=== PATIENT | female | born 1965 | race Hispanic/Latino ===

== ENCOUNTER 2017-01-22 18:27 | Emergency (ER) | payer OTHER ==
[2017-01-22 18:34] VITALS: BP 150/78; PULSE 73; RESP 18; TEMP 98.1; O2SAT 98
--- NOTE | 2017-01-22 19:31 | ED PDOC ---
Lower Extremity Pain/Injury Time Seen by Provider: 01/22/17 18:47 Chief Complaint (Nursing): Lower Extremity Problem/Injury Chief Complaint (Provider): Lower Extremity Problem/Injury History Per: Patient Onset/Duration Of Symptoms: Other (x today) Current Symptoms Are (Timing): Still Present Additional Complaint(s): Ema is a 51 year old female who presents to the Emergency Department complaining of right twisted ankle that occurred today between 15:00 and 16:00. Patient states she fell down a couple of stairs. Denies head injury, wrist injury, diabetes, hypertension and asthma. Admits to taking Advil at 17:00 today. PMD: Mayra Enrique Past Medical History Reviewed: Historical Data, Nursing Documentation, Vital Signs Vital Signs: Last Vital Signs Temp 98.1 F 01/22/17 18:30 Pulse 73 01/22/17 18:30 Resp 18 01/22/17 18:30 BP 150/78 01/22/17 18:30 Pulse Ox 98 01/22/17 18:30 - Medical History PMH: No Chronic Diseases - Surgical History Surgical History: No Surg Hx - Family History Family History: States: No Known Family Hx - Home Medications Home Medications: Ambulatory Orders Medication Instructions Recorded Ciprofloxacin [Cipro] 250 mg PO BID #14 tab 02/13/16 Triamcinolone Acetonide 0.1% 1 appl TP BID #1 tube 02/15/16 [Triamcinolone 0.1%] Ibuprofen [Motrin] 600 mg PO Q8 PRN #21 tab 01/22/17 - Allergies Allergies/Adverse Reactions: Allergies Allergy/AdvReac Type Severity Reaction Status Date / Time No Known Allergies Allergy Verified 02/13/16 13:31 Review of Systems ROS Statement: Except As Marked, All Systems Reviewed And Found Negative Musculoskeletal: Positive for: Other (Right Ankle Pain) Physical Exam - Reviewed Nursing Documentation Reviewed: Yes Vital Signs Reviewed: Yes - Physical Exam Appears: Positive for: Well, Non-toxic Head Exam: Positive for: ATRAUMATIC, NORMAL INSPECTION, NORMOCEPHALIC Skin: Positive for: Normal Color Eye Exam: Positive for: Normal appearance Neck: Positive for: Normal Respiratory: Negative for: Respiratory Distress Extremity: Positive for: Tenderness (Right lateral ankle tendenress), Other Neurologic/Psych: Positive for: Alert, Oriented (x 3) - ECG O2 Sat by Pulse Oximetry: 98 (RA) Pulse Ox Interpretation: Normal Medical Decision Making Medical Decision Making: Time: 18:47 Plan: - Right Ankle X-Ray - Right Foot X-Ray Time: 19:59 Right Foot X-Ray FINDINGS: Bones/joints: Unremarkable. No acute fracture. No dislocation. Soft tissues: Unremarkable. No radiopaque foreign body. IMPRESSION: No acute findings Time: 19:59 Right Ankle X-Ray FINDINGS: Bones/joints: Unremarkable. No acute fracture. No dislocation. Soft tissues: Unremarkable. IMPRESSION: No acute findings. Time: 20:06 Upon provider evaluation patient is medically stable, and requires no further treatment in the ED at this time. Patient will be discharged with Rx for Motrin. Counseling was provided and all questions were answered regarding diagnosis and need for follow up with PCP. There is agreement to discharge plan. Return if symptoms persist or worsen. Scribe Attestation: Documented by Omega Montgomery, acting as a scribe for Scott Vela PA-C Provider Scribe Attestation: All medical record entries made by the Scribe were at my direction and personally dictated by me. I have reviewed the chart and agree that the record accurately reflects my personal performance of the history, physical exam, medical decision making, and the department course for this patient. I have also personally directed, reviewed, and agree with the discharge instructions and disposition. Disposition - Clinical Impression Clinical Impression: Foot sprain, Ankle sprain - Patient ED Disposition Is Patient to be Admitted: No - Disposition Referrals: Podiatry Clinic [Outside] Disposition: Routine/Home Disposition Time: 20:06 Condition: FAIR Prescriptions: Ibuprofen [Motrin] 600 mg PO Q8 PRN #21 tab PRN Reason: Pain, Moderate (4-7) Instructions: Ankle Sprain (ED) Forms: [employer] ([employer]), [employer] ED School/Work Excuse
--- NOTE | 2017-01-23 11:39 | RAD ---
PROCEDURE: Right Ankle Radiographs. HISTORY: ankle injury COMPARISON: None FINDINGS: BONES: Normal. No fracture. JOINTS: Normal. No osteoarthritis. Ankle mortise maintained. Talar dome intact SOFT TISSUES: Normal. OTHER FINDINGS: None. IMPRESSION: Normal right ankle radiographs.
--- NOTE | 2017-01-23 11:40 | RAD ---
PROCEDURE: Right Foot Radiographs. HISTORY: foot injury right lateral tenderness COMPARISON: None. FINDINGS: BONES: Normal. No fractureNo fracture. Small subungual exostosis along the medial margin of the 1st distal phalanx. . JOINTS: Normal. SOFT TISSUES: Normal. OTHER FINDINGS: None. IMPRESSION: No acute fracture. Subungual exostosis 1st distal phalanx.
== END 2017-01-22 20:12 | disposition home or self-care (01) ==
LOC: H.ER 18:27
DX: S99.911A Unspecified injury of right ankle, initial encounter (principal); W10.9XXA Fall (on) (from) unspecified stairs and steps, initial encounter; Y92.89 Other specified places as the place of occurrence of the external cause